=== PATIENT | female | born 1990 | race Two or more races ===

== ENCOUNTER 2022-02-11 11:52 | Outpatient (CLI) | payer OTHER | END 2022-02-11 13:20 | disposition home or self-care (01) | LOC: PRENATAL 11:52 | PROVIDERS: ATTEND Obstetrics & Gynecology Maternal & Fetal Medicine | DX: O35.0XX0 Maternal care for (suspected) central nervous system malformation in fetus, not applicable or unspecified (principal); O35.3XX0 Maternal care for (suspected) damage to fetus from viral disease in mother, not applicable or unspecified; O42.90 Premature rupture of membranes, unspecified as to length of time between rupture and onset of labor, unspecified weeks of gestation; Z91.013 Allergy to seafood; Z3A.21 21 weeks gestation of pregnancy ==

== ENCOUNTER 2022-06-22 14:07 | Inpatient (IN) | payer OTHER ==
[~2022-06-22] VITALS: Ht 149.9 cm; Wt 64.4 kg
[2022-06-24] MEDS ORDERED: PRENATAL + DHA1 EAC1 PO (09:59)
[2022-06-26] MEDS ORDERED: FLONASE16 GM (08:40)
[2022-06-26] MEDS ORDERED: SODIUM CHLORIDE3 M1 (08:40)
[2022-06-26] MEDS ORDERED: ATABEX OB TABL1 EACH (08:40)
== END 2022-06-26 15:08 | disposition home or self-care (01) | DRG 807 ==
LOC: LDR 14:07 → OB/GYN 06-24 17:16
PROVIDERS: ADMIT Obstetrics & Gynecology; ATTEND Obstetrics & Gynecology
PROC: 10E0XZZ Delivery of Products of Conception, External Approach (ICD-10-PCS; principal; 2022-06-24)
PROC: 4A1HXCZ Monitoring of Products of Conception, Cardiac Rate, External Approach (ICD-10-PCS; 2022-06-24)
DX: O80 Encounter for full-term uncomplicated delivery (principal); Z37.0 Single live birth; Z3A.39 39 weeks gestation of pregnancy; Z20.822 Contact with and (suspected) exposure to COVID-19